=== PATIENT | male | born 1935 | race Caucasian/White ===

== ENCOUNTER 2021-12-03 16:02 | Inpatient (IN) | payer MEDICARE, BC ==
[2021-12-04] MEDS ORDERED: traZODone HCl 50 MG TAB PO SCH (22:15)
[2021-12-04] MEDS ORDERED: Melatonin 3 MG TAB PO SCH (22:15)
[2021-12-05] MEDS ORDERED: Ventolin HFA Inhaler 60 PUFF INHALER INH PRN (12:50)
[2021-12-05] MEDS ORDERED: Nitroglycerin 0.4 MG TAB (25 Tab Bottle) SL PRN (12:50)
[2021-12-05] MEDS ORDERED: Calcium Carbonate 500 MG ChewTAB PO PRN (12:54)
[2021-12-05] MEDS ORDERED: Cepastat Lozenges 1 LOZ PO PRN (12:54)
[2021-12-05] MEDS ORDERED: Guaifenesin DM 100-10/5 ML UDCUP PO PRN (12:54)
[2021-12-05] MEDS ORDERED: Artificial Tear Sol 15 ML BOT EA EYE PRN (12:54)
[2021-12-05] MEDS ORDERED: Benzonatate 100 MG CAP PO PRN (12:54)
[2021-12-05] MEDS ORDERED: cloNIDine 0.1 MG TAB PO PRN (12:54)
[2021-12-05] MEDS ORDERED: Loperamide HCl 2 MG CAP PO PRN ×2 (12:54)
[2021-12-05] MEDS ORDERED: Acetaminophen 650 MG Suppository PR PRN (12:54)
[2021-12-05] MEDS ORDERED: Ondansetron ODT 4 MG TAB PO PRN (12:54)
[2021-12-05] MEDS: Gabapentin 300 MG CAP PO SCH ×2 (14:27→21:42)
[2021-12-05] MEDS: Acetaminophen 325 MG TAB PO PRN (14:28)
[2021-12-05] MEDS ORDERED: [UNRECOGNIZED DRUG - OTHER] PO SCH (21:00)
[2021-12-05] MEDS ORDERED: ROSUVASTATIN CALCIUM 20 MG PO SCH (21:00)
[2021-12-05] MEDS ORDERED: RISPERIDONE 1 MG PO SCH (21:00)
[2021-12-05] MEDS: Polyethylene Glycol 3350 17 GM Packet PO SCH (21:42)
[2021-12-05] MEDS: Senokot S 8.6-50 MG TAB PO SCH (21:43)
[2021-12-05] MEDS: risperiDONE 0.5 MG TAB PO SCH (21:43)
[2021-12-05] MEDS: Folic Acid 1 MG TAB PO SCH (21:43)
[2021-12-05] MEDS: Cyanocobalamin (Vitamin B-12) 1,000 MCG TAB PO SCH (21:43)
[2021-12-05] MEDS: Rosuvastatin 10 MG TAB PO SCH (21:43)
[2021-12-05] MEDS: Apixaban 5 MG TAB PO SCH (21:43)
[2021-12-06] MEDS: Gabapentin 300 MG CAP PO SCH ×3 (08:45→20:48)
[2021-12-06] MEDS: Cholecalciferol (Vitamin D3) 400 UNITS TAB PO SCH (08:45)
[2021-12-06] MEDS: risperiDONE 0.5 MG TAB PO SCH ×2 (08:46→20:48)
[2021-12-06] MEDS: Potassium Chloride 20 MEQ TAB PO SCH (08:47)
[2021-12-06] MEDS: Apixaban 5 MG TAB PO SCH ×2 (08:47→20:49)
[2021-12-06] MEDS: Spironolactone 25 MG TAB PO SCH (08:47)
[2021-12-06] MEDS: Ascorbic Acid 500 mg Chewable Tablet PO SCH (08:47)
[2021-12-06] MEDS: Senokot S 8.6-50 MG TAB PO SCH ×2 (08:47→20:49)
[2021-12-06] MEDS: Zinc Sulfate 220 MG CAP PO SCH (08:48)
[2021-12-06] MEDS: Aspirin 81 mg Enteric Coated Tablet PO SCH (08:48)
[2021-12-06] MEDS ORDERED: Cholecalciferol (Vitamin D3) 400 UNITS TAB PO SCH (09:00)
[2021-12-06 09:09] LABS: #Basophils 0.1 thou/uL (0.0-0.2); #Eosinphils 0.2 thou/uL (0.0-0.7); #Lymphocytes 0.8 thou/uL (1.20-3.40); #Monocytes 0.5 thou/uL (0.11-0.59); #Neutrophils 5.5 thou/uL (1.40-6.50); %Eosinophils 2.5 % (0.0-10.0); %Lymphocytes 11.3 % (21.0-51.0); %Monocytes 7.2 % (0.0-10.0); Hemoglobin 15.6 g/dL (14.0-18.0); Mean Corpuscular HGB CONC 30.1 g/dL (32.0-36.0); Mean Corpuscular Hemoglobin 29.1 pg (27.0-31.0); Mean Corpuscular Volume 96.4 fL (78.0-98.0); Mean Platelet Volume 10.5 fL (7.4-10.4); Platelet Count 121 thou/uL (130-400); Red Blood Cell (RBC) Count 5.38 mill/uL (4.70-6.10)
[2021-12-06] MEDS: Furosemide 40 MG TAB PO SCH (09:29)
[2021-12-06 09:45] LABS: ALT (SGPT) 23 U/L (8-55); AST (SGOT) 37 U/L (5-34); Albumin 3.8 g/dL (3.4-4.8); Alkaline Phosphatase 166 U/L (40-110); Anion Gap 19 mmol/L (10-20); BUN (Urea Nitrogen) 20 mg/dL (8.4-25.7); Calc. Creatinine Clearance 84 mL/min (70-130); Calcium 9.7 mg/dL (7.8-10.44); Carbon Dioxide 28 mmol/L (23-31); Chloride 97 mmol/L (98-107); Estimated GFR 88; Globulin 3.1 g/dL (2.4-3.5); Glucose 140 mg/dL (83-110); Potassium 3.9 mmol/L (3.5-5.1); Protein, Total 6.9 g/dL (5.8-8.1); Sodium 140 mmol/L (136-145)
[2021-12-06] MEDS: Acetaminophen 325 MG TAB PO PRN (15:43)
[2021-12-06] MEDS: Polyethylene Glycol 3350 17 GM Packet PO SCH (20:48)
[2021-12-06] MEDS: Rosuvastatin 10 MG TAB PO SCH (20:48)
[2021-12-06] MEDS: Cyanocobalamin (Vitamin B-12) 1,000 MCG TAB PO SCH (20:49)
[2021-12-06] MEDS: Folic Acid 1 MG TAB PO SCH (20:49)
[2021-12-07] MEDS: Spironolactone 25 MG TAB PO SCH (08:48)
[2021-12-07] MEDS: Zinc Sulfate 220 MG CAP PO SCH (08:48)
[2021-12-07] MEDS: Ascorbic Acid 500 mg Chewable Tablet PO SCH (08:48)
[2021-12-07] MEDS: Apixaban 5 MG TAB PO SCH ×2 (08:48→20:35)
[2021-12-07] MEDS: Aspirin 81 mg Enteric Coated Tablet PO SCH (08:48)
[2021-12-07] MEDS: risperiDONE 0.5 MG TAB PO SCH ×2 (08:48→20:35)
[2021-12-07] MEDS: Potassium Chloride 20 MEQ TAB PO SCH (08:49)
[2021-12-07] MEDS: Cholecalciferol (Vitamin D3) 400 UNITS TAB PO SCH (08:49)
[2021-12-07] MEDS: Gabapentin 300 MG CAP PO SCH ×3 (08:49→20:35)
[2021-12-07] MEDS: Furosemide 40 MG TAB PO SCH (08:51)
[2021-12-07] MEDS: Senokot S 8.6-50 MG TAB PO SCH ×2 (09:30→20:35)
[2021-12-07] MEDS: Acetaminophen 325 MG TAB PO PRN (14:40)
[2021-12-07] MEDS: Rosuvastatin 10 MG TAB PO SCH (20:34)
[2021-12-07] MEDS: Folic Acid 1 MG TAB PO SCH (20:35)
[2021-12-07] MEDS: Cyanocobalamin (Vitamin B-12) 1,000 MCG TAB PO SCH (20:35)
[2021-12-07] MEDS: Ondansetron ODT 4 MG TAB SL PRN (20:35)
[2021-12-07] MEDS: Polyethylene Glycol 3350 17 GM Packet PO SCH (20:36)
[2021-12-08] MEDS: Acetaminophen 325 MG TAB PO PRN (09:50)
[2021-12-08] MEDS: Gabapentin 300 MG CAP PO SCH ×3 (09:51→20:18)
[2021-12-08 09:52] LABS: #Basophils 0.1 thou/uL (0.0-0.2); #Eosinphils 0.4 thou/uL (0.0-0.7); #Monocytes 0.7 thou/uL (0.11-0.59); %Basophils 1.1 % (0.0-1.0); %Eosinophils 4.1 % (0.0-10.0); %Lymphocytes 10.5 % (21.0-51.0); %Monocytes 7.8 % (0.0-10.0); %Neutrophils 76.5 % (42.0-75.0); Hemoglobin 15.1 g/dL (14.0-18.0); Mean Corpuscular HGB CONC 29.5 g/dL (32.0-36.0); Mean Corpuscular Hemoglobin 28.8 pg (27.0-31.0); Mean Corpuscular Volume 97.7 fL (78.0-98.0); Mean Platelet Volume 10.8 fL (7.4-10.4); Platelet Count 205 thou/uL (130-400); Red Blood Cell (RBC) Count 5.23 mill/uL (4.70-6.10); White Blood Cell (WBC) Count 9.2 thou/uL (4.8-10.8)
[2021-12-08] MEDS: Senokot S 8.6-50 MG TAB PO SCH ×2 (09:52→20:18)
[2021-12-08] MEDS: Aspirin 81 mg Enteric Coated Tablet PO SCH (09:57)
[2021-12-08] MEDS: Potassium Chloride 20 MEQ TAB PO SCH (09:57)
[2021-12-08] MEDS: Spironolactone 25 MG TAB PO SCH (09:58)
[2021-12-08] MEDS: risperiDONE 0.5 MG TAB PO SCH ×2 (10:00→20:19)
[2021-12-08] MEDS: Apixaban 5 MG TAB PO SCH ×2 (10:00→20:19)
[2021-12-08] MEDS: Ascorbic Acid 500 mg Chewable Tablet PO SCH (10:01)
[2021-12-08] MEDS: Cholecalciferol (Vitamin D3) 400 UNITS TAB PO SCH (10:01)
[2021-12-08 10:02] LABS: Anion Gap 18 mmol/L (10-20); BUN (Urea Nitrogen) 20 mg/dL (8.4-25.7); Calc. Creatinine Clearance 79 mL/min (70-130); Calcium 9.4 mg/dL (7.8-10.44); Carbon Dioxide 25 mmol/L (23-31); Chloride 101 mmol/L (98-107); Estimated GFR 87; Glucose 164 mg/dL (83-110); Potassium 4.9 mmol/L (3.5-5.1); Sodium 139 mmol/L (136-145)
[2021-12-08] MEDS: Furosemide 40 MG TAB PO SCH (10:03)
[2021-12-08] MEDS: Zinc Sulfate 220 MG CAP PO SCH (10:04)
[2021-12-08] MEDS: Polyethylene Glycol 3350 17 GM Packet PO SCH (20:18)
[2021-12-08] MEDS: Rosuvastatin 10 MG TAB PO SCH (20:19)
[2021-12-08] MEDS: Folic Acid 1 MG TAB PO SCH (20:19)
[2021-12-08] MEDS: Cyanocobalamin (Vitamin B-12) 1,000 MCG TAB PO SCH (20:19)
[2021-12-09] MEDS: Gabapentin 300 MG CAP PO SCH ×3 (08:42→21:29)
[2021-12-09] MEDS: Zinc Sulfate 220 MG CAP PO SCH (08:42)
[2021-12-09] MEDS: Senokot S 8.6-50 MG TAB PO SCH ×2 (08:42→21:29)
[2021-12-09] MEDS: risperiDONE 0.5 MG TAB PO SCH ×2 (08:43→21:31)
[2021-12-09] MEDS: Apixaban 5 MG TAB PO SCH ×2 (08:43→21:31)
[2021-12-09] MEDS: Cholecalciferol (Vitamin D3) 400 UNITS TAB PO SCH (08:43)
[2021-12-09] MEDS: Aspirin 81 mg Enteric Coated Tablet PO SCH (08:43)
[2021-12-09] MEDS: Potassium Chloride 20 MEQ TAB PO SCH (08:43)
[2021-12-09] MEDS: Spironolactone 25 MG TAB PO SCH (08:43)
[2021-12-09] MEDS: Ascorbic Acid 500 mg Chewable Tablet PO SCH (08:43)
[2021-12-09] MEDS: Furosemide 20 MG TAB PO SCH (08:43)
[2021-12-09] MEDS: Acetaminophen 325 MG TAB PO PRN (12:50)
[2021-12-09] MEDS: Rosuvastatin 10 MG TAB PO SCH (21:28)
[2021-12-09] MEDS: Polyethylene Glycol 3350 17 GM Packet PO SCH (21:28)
[2021-12-09] MEDS: Cyanocobalamin (Vitamin B-12) 1,000 MCG TAB PO SCH (21:29)
[2021-12-09] MEDS: Folic Acid 1 MG TAB PO SCH (21:31)
[2021-12-10] MEDS: Senokot S 8.6-50 MG TAB PO SCH ×2 (09:07→21:20)
[2021-12-10] MEDS: Zinc Sulfate 220 MG CAP PO SCH (09:08)
[2021-12-10] MEDS: Aspirin 81 mg Enteric Coated Tablet PO SCH (09:08)
[2021-12-10] MEDS: Gabapentin 300 MG CAP PO SCH ×3 (09:08→21:23)
[2021-12-10] MEDS: Apixaban 5 MG TAB PO SCH ×2 (09:09→21:21)
[2021-12-10] MEDS: Spironolactone 25 MG TAB PO SCH ×2 (09:09→11:34)
[2021-12-10] MEDS: Furosemide 20 MG TAB PO SCH (09:09)
[2021-12-10] MEDS: Cholecalciferol (Vitamin D3) 400 UNITS TAB PO SCH (09:11)
[2021-12-10] MEDS: risperiDONE 0.5 MG TAB PO SCH ×2 (09:11→21:22)
[2021-12-10] MEDS: Ascorbic Acid 500 mg Chewable Tablet PO SCH (09:11)
[2021-12-10] MEDS: Potassium Chloride 20 MEQ TAB PO SCH (09:11)
[2021-12-10] MEDS: Polyethylene Glycol 3350 17 GM Packet PO SCH (21:17)
[2021-12-10] MEDS: Cyanocobalamin (Vitamin B-12) 1,000 MCG TAB PO SCH (21:21)
[2021-12-10] MEDS: Folic Acid 1 MG TAB PO SCH (21:22)
[2021-12-10] MEDS: Rosuvastatin 10 MG TAB PO SCH (21:22)
[2021-12-11 06:15] LABS: #Basophils 0.1 thou/uL (0.0-0.2); #Eosinphils 0.3 thou/uL (0.0-0.7); #Lymphocytes 1.4 thou/uL (1.20-3.40); #Monocytes 0.8 thou/uL (0.11-0.59); #Neutrophils 6.9 thou/uL (1.40-6.50); %Basophils 0.7 % (0.0-1.0); %Eosinophils 3.6 % (0.0-10.0); %Lymphocytes 14.5 % (21.0-51.0); %Monocytes 8.1 % (0.0-10.0); %Neutrophils 73.1 % (42.0-75.0); Hemoglobin 13.9 g/dL (14.0-18.0); Mean Corpuscular HGB CONC 30.1 g/dL (32.0-36.0); Mean Corpuscular Hemoglobin 29.1 pg (27.0-31.0); Mean Corpuscular Volume 96.8 fL (78.0-98.0); Platelet Count 223 thou/uL (130-400); RBC Distribution Width 13.9 % (11.5-14.5); Red Blood Cell (RBC) Count 4.79 mill/uL (4.70-6.10); White Blood Cell (WBC) Count 9.4 thou/uL (4.8-10.8)
[2021-12-11 06:39] LABS: Anion Gap 18 mmol/L (10-20); BUN (Urea Nitrogen) 19 mg/dL (8.4-25.7); Calc. Creatinine Clearance 83 mL/min (70-130); Calcium 9.2 mg/dL (7.8-10.44); Carbon Dioxide 24 mmol/L (23-31); Chloride 102 mmol/L (98-107); Estimated GFR 88; Glucose 118 mg/dL (83-110); Potassium 4.4 mmol/L (3.5-5.1); Sodium 140 mmol/L (136-145)
[2021-12-11] MEDS: Apixaban 5 MG TAB PO SCH ×2 (08:30→21:04)
[2021-12-11] MEDS: Cholecalciferol (Vitamin D3) 400 UNITS TAB PO SCH (08:30)
[2021-12-11] MEDS: Potassium Chloride 20 MEQ TAB PO SCH (08:30)
[2021-12-11] MEDS: Ascorbic Acid 500 mg Chewable Tablet PO SCH (08:30)
[2021-12-11] MEDS: Zinc Sulfate 220 MG CAP PO SCH (08:30)
[2021-12-11] MEDS: Gabapentin 300 MG CAP PO SCH ×3 (08:31→21:03)
[2021-12-11] MEDS: Aspirin 81 mg Enteric Coated Tablet PO SCH (08:32)
[2021-12-11] MEDS: risperiDONE 0.5 MG TAB PO SCH ×2 (08:32→21:01)
[2021-12-11] MEDS: Furosemide 20 MG TAB PO SCH (08:32)
[2021-12-11] MEDS: Spironolactone 25 MG TAB PO SCH (08:34)
[2021-12-11] MEDS: Senokot S 8.6-50 MG TAB PO SCH ×2 (09:28→21:35)
[2021-12-11] MEDS: Acetaminophen 325 MG TAB PO PRN (18:44)
[2021-12-11] MEDS: Rosuvastatin 10 MG TAB PO SCH (21:03)
[2021-12-11] MEDS: Folic Acid 1 MG TAB PO SCH (21:04)
[2021-12-11] MEDS: Polyethylene Glycol 3350 17 GM Packet PO SCH (21:04)
[2021-12-11] MEDS: Cyanocobalamin (Vitamin B-12) 1,000 MCG TAB PO SCH (21:04)
[2021-12-12] MEDS: Gabapentin 300 MG CAP PO SCH ×3 (08:24→21:16)
[2021-12-12] MEDS: Ascorbic Acid 500 mg Chewable Tablet PO SCH (08:25)
[2021-12-12] MEDS: Zinc Sulfate 220 MG CAP PO SCH (08:25)
[2021-12-12] MEDS: Cholecalciferol (Vitamin D3) 400 UNITS TAB PO SCH (08:25)
[2021-12-12] MEDS: Potassium Chloride 20 MEQ TAB PO SCH (08:25)
[2021-12-12] MEDS: Aspirin 81 mg Enteric Coated Tablet PO SCH (08:26)
[2021-12-12] MEDS: risperiDONE 0.5 MG TAB PO SCH ×2 (08:27→21:17)
[2021-12-12] MEDS: Acetaminophen 325 MG TAB PO PRN ×2 (08:28→17:40)
[2021-12-12] MEDS: Apixaban 5 MG TAB PO SCH ×2 (08:28→21:17)
[2021-12-12] MEDS: Spironolactone 25 MG TAB PO SCH (09:32)
[2021-12-12] MEDS: Furosemide 20 MG TAB PO SCH (09:48)
[2021-12-12] MEDS: Senokot S 8.6-50 MG TAB PO SCH ×2 (09:49→21:19)
[2021-12-12] MEDS: Folic Acid 1 MG TAB PO SCH (21:17)
[2021-12-12] MEDS: Rosuvastatin 10 MG TAB PO SCH (21:17)
[2021-12-12] MEDS: Cyanocobalamin (Vitamin B-12) 1,000 MCG TAB PO SCH (21:18)
[2021-12-12] MEDS: Polyethylene Glycol 3350 17 GM Packet PO SCH (21:19)
[2021-12-13] MEDS: Potassium Chloride 20 MEQ TAB PO SCH ×2 (07:57→08:15)
[2021-12-13] MEDS: Cholecalciferol (Vitamin D3) 400 UNITS TAB PO SCH ×2 (07:57→08:17)
[2021-12-13] MEDS: Aspirin 81 mg Enteric Coated Tablet PO SCH ×2 (07:57→08:16)
[2021-12-13] MEDS: Furosemide 20 MG TAB PO SCH ×2 (07:58→08:16)
[2021-12-13] MEDS: Apixaban 5 MG TAB PO SCH ×3 (07:58→20:42)
[2021-12-13] MEDS: risperiDONE 0.5 MG TAB PO SCH ×2 (07:58→20:43)
[2021-12-13] MEDS: Gabapentin 300 MG CAP PO SCH ×3 (07:58→20:42)
[2021-12-13] MEDS: Zinc Sulfate 220 MG CAP PO SCH (07:58)
[2021-12-13] MEDS: Ascorbic Acid 500 mg Chewable Tablet PO SCH (07:58)
[2021-12-13] MEDS: Senokot S 8.6-50 MG TAB PO SCH ×2 (08:17→20:43)
[2021-12-13] MEDS: Ondansetron ODT 4 MG TAB SL PRN (14:33)
[2021-12-13] MEDS: Metoclopramide HCl 10 MG TAB PO SCH ×2 (17:53→20:42)
[2021-12-13] MEDS: Polyethylene Glycol 3350 17 GM Packet PO SCH (20:42)
[2021-12-13] MEDS: Folic Acid 1 MG TAB PO SCH (20:42)
[2021-12-13] MEDS: Cyanocobalamin (Vitamin B-12) 1,000 MCG TAB PO SCH (20:42)
[2021-12-13] MEDS: Rosuvastatin 10 MG TAB PO SCH (20:43)
[2021-12-14 06:04] LABS: Anion Gap 16 mmol/L (10-20); BUN (Urea Nitrogen) 16 mg/dL (8.4-25.7); Calc. Creatinine Clearance 82 mL/min (70-130); Calcium 9.3 mg/dL (7.8-10.44); Carbon Dioxide 26 mmol/L (23-31); Chloride 104 mmol/L (98-107); Estimated GFR 89; Glucose 117 mg/dL (83-110); Potassium 4.4 mmol/L (3.5-5.1); Sodium 142 mmol/L (136-145)
[2021-12-14 06:17] LABS: #Basophils 0.2 thou/uL (0.0-0.2); #Eosinphils 0.2 thou/uL (0.0-0.7); #Lymphocytes 1.2 thou/uL (1.20-3.40); #Monocytes 0.6 thou/uL (0.11-0.59); #Neutrophils 8.1 thou/uL (1.40-6.50); %Basophils 1.6 % (0.0-1.0); %Lymphocytes 11.8 % (21.0-51.0); %Monocytes 6.2 % (0.0-10.0); %Neutrophils 78.4 % (42.0-75.0); Hemoglobin 13.8 g/dL (14.0-18.0); Mean Corpuscular HGB CONC 29.9 g/dL (32.0-36.0); Mean Corpuscular Hemoglobin 28.8 pg (27.0-31.0); Mean Corpuscular Volume 96.5 fL (78.0-98.0); Mean Platelet Volume 9.8 fL (7.4-10.4); Platelet Count 243 thou/uL (130-400); Red Blood Cell (RBC) Count 4.79 mill/uL (4.70-6.10); White Blood Cell (WBC) Count 10.3 thou/uL (4.8-10.8)
[2021-12-14] MEDS: Furosemide 20 MG TAB PO SCH (07:43)
[2021-12-14] MEDS: Metoclopramide HCl 10 MG TAB PO SCH ×4 (07:43→21:46)
[2021-12-14] MEDS: Aspirin 81 mg Enteric Coated Tablet PO SCH (07:44)
[2021-12-14] MEDS: risperiDONE 0.5 MG TAB PO SCH ×2 (07:44→21:46)
[2021-12-14] MEDS: Gabapentin 300 MG CAP PO SCH ×3 (07:44→21:47)
[2021-12-14] MEDS: Senokot S 8.6-50 MG TAB PO SCH ×2 (07:45→21:48)
[2021-12-14] MEDS: Potassium Chloride 20 MEQ TAB PO SCH (09:37)
[2021-12-14] MEDS: Ascorbic Acid 500 mg Chewable Tablet PO SCH (09:38)
[2021-12-14] MEDS: Apixaban 5 MG TAB PO SCH ×2 (09:38→21:45)
[2021-12-14] MEDS: Cholecalciferol (Vitamin D3) 400 UNITS TAB PO SCH (09:38)
[2021-12-14] MEDS: Zinc Sulfate 220 MG CAP PO SCH (09:39)
[2021-12-14] MEDS: Cyanocobalamin (Vitamin B-12) 1,000 MCG TAB PO SCH (21:46)
[2021-12-14] MEDS: Rosuvastatin 10 MG TAB PO SCH (21:46)
[2021-12-14] MEDS: Folic Acid 1 MG TAB PO SCH (21:46)
[2021-12-14] MEDS: Polyethylene Glycol 3350 17 GM Packet PO SCH (21:58)
[2021-12-15] MEDS: Acetaminophen 325 MG TAB PO PRN ×3 (03:00→18:45)
[2021-12-15] MEDS: Ondansetron ODT 4 MG TAB SL PRN (08:04)
[2021-12-15] MEDS: Gabapentin 300 MG CAP PO SCH ×3 (09:08→21:47)
[2021-12-15] MEDS: Cholecalciferol (Vitamin D3) 400 UNITS TAB PO SCH (09:08)
[2021-12-15] MEDS: Ascorbic Acid 500 mg Chewable Tablet PO SCH (09:09)
[2021-12-15] MEDS: Aspirin 81 mg Enteric Coated Tablet PO SCH (09:09)
[2021-12-15] MEDS: Potassium Chloride 20 MEQ TAB PO SCH ×2 (09:10→09:33)
[2021-12-15] MEDS: risperiDONE 0.5 MG TAB PO SCH ×2 (09:10→21:40)
[2021-12-15] MEDS: Apixaban 5 MG TAB PO SCH ×2 (09:13→21:39)
[2021-12-15] MEDS: Zinc Sulfate 220 MG CAP PO SCH (09:13)
[2021-12-15] MEDS: Metoclopramide HCl 10 MG TAB PO SCH ×4 (09:14→21:47)
[2021-12-15] MEDS: Senokot S 8.6-50 MG TAB PO SCH ×2 (09:14→21:39)
[2021-12-15] MEDS: Furosemide 20 MG TAB PO SCH (09:14)
[2021-12-15] MEDS: Folic Acid 1 MG TAB PO SCH (21:39)
[2021-12-15] MEDS: Rosuvastatin 10 MG TAB PO SCH (21:39)
[2021-12-15] MEDS: Cyanocobalamin (Vitamin B-12) 1,000 MCG TAB PO SCH (21:41)
[2021-12-15] MEDS: Polyethylene Glycol 3350 17 GM Packet PO SCH (21:48)
[2021-12-16] MEDS: Acetaminophen 325 MG TAB PO PRN ×3 (03:50→17:36)
[2021-12-16] MEDS ORDERED: risperiDONE 0.5 MG TAB ONE (07:48)
[2021-12-16] MEDS: risperiDONE 0.5 MG TAB PO SCH ×2 (08:01→21:05)
[2021-12-16] MEDS: Gabapentin 300 MG CAP PO SCH ×3 (08:04→21:04)
[2021-12-16] MEDS: Apixaban 5 MG TAB PO SCH ×2 (08:07→21:05)
[2021-12-16] MEDS: Furosemide 20 MG TAB PO SCH (08:07)
[2021-12-16] MEDS: Aspirin 81 mg Enteric Coated Tablet PO SCH (08:09)
[2021-12-16] MEDS: Metoclopramide HCl 10 MG TAB PO SCH ×4 (08:10→21:05)
[2021-12-16] MEDS: Zinc Sulfate 220 MG CAP PO SCH (08:12)
[2021-12-16] MEDS: Senokot S 8.6-50 MG TAB PO SCH ×2 (08:14→21:05)
[2021-12-16] MEDS: Ascorbic Acid 500 mg Chewable Tablet PO SCH (08:17)
[2021-12-16] MEDS: Cholecalciferol (Vitamin D3) 400 UNITS TAB PO SCH (08:17)
[2021-12-16] MEDS: Potassium Chloride 20 MEQ TAB PO SCH (08:20)
[2021-12-16] MEDS: Folic Acid 1 MG TAB PO SCH (21:04)
[2021-12-16] MEDS: Rosuvastatin 10 MG TAB PO SCH (21:04)
[2021-12-16] MEDS: Cyanocobalamin (Vitamin B-12) 1,000 MCG TAB PO SCH (21:04)
[2021-12-16] MEDS: Polyethylene Glycol 3350 17 GM Packet PO SCH (21:05)
[2021-12-17] MEDS: Acetaminophen 325 MG TAB PO PRN ×3 (00:45→15:11)
[2021-12-17] MEDS: Potassium Chloride 20 MEQ TAB PO SCH ×2 (09:24→10:06)
[2021-12-17] MEDS: Cholecalciferol (Vitamin D3) 400 UNITS TAB PO SCH ×2 (09:24→10:06)
[2021-12-17] MEDS: Ascorbic Acid 500 mg Chewable Tablet PO SCH ×2 (09:25→10:06)
[2021-12-17] MEDS: risperiDONE 0.5 MG TAB PO SCH ×2 (09:25→21:42)
[2021-12-17] MEDS: Zinc Sulfate 220 MG CAP PO SCH ×2 (09:25→10:07)
[2021-12-17] MEDS: Apixaban 5 MG TAB PO SCH ×2 (09:25→21:43)
[2021-12-17] MEDS: Furosemide 20 MG TAB PO SCH (09:25)
[2021-12-17] MEDS: Senokot S 8.6-50 MG TAB PO SCH ×3 (09:26→21:43)
[2021-12-17] MEDS: Aspirin 81 mg Enteric Coated Tablet PO SCH (09:26)
[2021-12-17] MEDS: Gabapentin 300 MG CAP PO SCH ×3 (09:27→21:43)
[2021-12-17] MEDS: Metoclopramide HCl 10 MG TAB PO SCH ×4 (09:28→21:43)
[2021-12-17] MEDS: Cyanocobalamin (Vitamin B-12) 1,000 MCG TAB PO SCH (21:43)
[2021-12-17] MEDS: Folic Acid 1 MG TAB PO SCH (21:43)
[2021-12-17] MEDS: Rosuvastatin 10 MG TAB PO SCH (21:43)
[2021-12-17] MEDS: Polyethylene Glycol 3350 17 GM Packet PO SCH (21:44)
[2021-12-18] MEDS: Ondansetron ODT 4 MG TAB SL PRN (09:03)
[2021-12-18] MEDS: risperiDONE 0.5 MG TAB PO SCH ×2 (09:05→20:54)
[2021-12-18] MEDS: Metoclopramide HCl 10 MG TAB PO SCH ×4 (09:07→20:55)
[2021-12-18] MEDS: Potassium Chloride 20 MEQ TAB PO SCH (09:15)
[2021-12-18] MEDS: Cholecalciferol (Vitamin D3) 400 UNITS TAB PO SCH (09:15)
[2021-12-18] MEDS: Furosemide 20 MG TAB PO SCH (09:17)
[2021-12-18] MEDS: Ascorbic Acid 500 mg Chewable Tablet PO SCH (09:17)
[2021-12-18] MEDS: Apixaban 5 MG TAB PO SCH ×2 (09:18→20:55)
[2021-12-18] MEDS: Zinc Sulfate 220 MG CAP PO SCH (09:18)
[2021-12-18] MEDS: Aspirin 81 mg Enteric Coated Tablet PO SCH (09:18)
[2021-12-18] MEDS: Senokot S 8.6-50 MG TAB PO SCH ×2 (09:19→20:54)
[2021-12-18] MEDS: Gabapentin 300 MG CAP PO SCH ×3 (09:44→20:54)
[2021-12-18] MEDS: Acetaminophen 325 MG TAB PO PRN (11:37)
[2021-12-18] MEDS: Polyethylene Glycol 3350 17 GM Packet PO SCH (20:48)
[2021-12-18] MEDS: Cyanocobalamin (Vitamin B-12) 1,000 MCG TAB PO SCH (20:54)
[2021-12-18] MEDS: Rosuvastatin 10 MG TAB PO SCH (20:54)
[2021-12-18] MEDS: Folic Acid 1 MG TAB PO SCH (20:55)
[2021-12-19] MEDS: Acetaminophen 325 MG TAB PO PRN ×3 (08:25→20:26)
[2021-12-19] MEDS: Ondansetron ODT 4 MG TAB SL PRN (08:25)
[2021-12-19] MEDS: Ascorbic Acid 500 mg Chewable Tablet PO SCH (08:26)
[2021-12-19] MEDS: Senokot S 8.6-50 MG TAB PO SCH ×2 (08:26→20:27)
[2021-12-19] MEDS: Aspirin 81 mg Enteric Coated Tablet PO SCH (08:26)
[2021-12-19] MEDS: Apixaban 5 MG TAB PO SCH ×2 (08:27→20:28)
[2021-12-19] MEDS: Zinc Sulfate 220 MG CAP PO SCH (08:27)
[2021-12-19] MEDS: Cholecalciferol (Vitamin D3) 400 UNITS TAB PO SCH (08:27)
[2021-12-19] MEDS: Gabapentin 300 MG CAP PO SCH ×3 (08:27→20:27)
[2021-12-19] MEDS: Potassium Chloride 20 MEQ TAB PO SCH (08:27)
[2021-12-19] MEDS: Metoclopramide HCl 10 MG TAB PO SCH ×4 (08:27→20:28)
[2021-12-19] MEDS: Furosemide 20 MG TAB PO SCH (08:28)
[2021-12-19] MEDS: risperiDONE 0.5 MG TAB PO SCH ×2 (08:29→20:27)
[2021-12-19] MEDS: Sodium Chloride 0.65% Nasal 44 ML BOT EA NARE PRN (17:19)
[2021-12-19] MEDS: Polyethylene Glycol 3350 17 GM Packet PO SCH (20:26)
[2021-12-19] MEDS: Folic Acid 1 MG TAB PO SCH (20:27)
[2021-12-19] MEDS: Cyanocobalamin (Vitamin B-12) 1,000 MCG TAB PO SCH (20:28)
[2021-12-19] MEDS: Rosuvastatin 10 MG TAB PO SCH (20:28)
[2021-12-19 21:26] LABS: Troponin I 0.469 ng/mL (< 0.028)
[2021-12-20] MEDS: Acetaminophen 325 MG TAB PO PRN ×3 (02:36→14:44)
[2021-12-20 04:49] LABS: Troponin I 0.532 ng/mL (< 0.028)
[2021-12-20] MEDS: Gabapentin 300 MG CAP PO SCH ×3 (08:50→20:15)
[2021-12-20] MEDS: Metoclopramide HCl 10 MG TAB PO SCH ×4 (08:50→20:15)
[2021-12-20] MEDS: Ascorbic Acid 500 mg Chewable Tablet PO SCH (08:50)
[2021-12-20] MEDS: Apixaban 5 MG TAB PO SCH ×2 (08:50→20:15)
[2021-12-20] MEDS: Senokot S 8.6-50 MG TAB PO SCH ×2 (08:51→20:15)
[2021-12-20] MEDS: Loratadine 10 MG TAB PO SCH (08:51)
[2021-12-20] MEDS: Cholecalciferol (Vitamin D3) 400 UNITS TAB PO SCH (08:51)
[2021-12-20] MEDS: Furosemide 20 MG TAB PO SCH (08:51)
[2021-12-20] MEDS: Aspirin 81 mg Enteric Coated Tablet PO SCH (08:52)
[2021-12-20] MEDS: Potassium Chloride 20 MEQ TAB PO SCH (08:52)
[2021-12-20] MEDS: Zinc Sulfate 220 MG CAP PO SCH (08:52)
[2021-12-20] MEDS: risperiDONE 0.5 MG TAB PO SCH ×2 (08:53→20:15)
[2021-12-20 19:11] VITALS: BMI 24.5
[2021-12-20] MEDS: Cyanocobalamin (Vitamin B-12) 1,000 MCG TAB PO SCH (20:15)
[2021-12-20] MEDS: Polyethylene Glycol 3350 17 GM Packet PO SCH (20:15)
[2021-12-20] MEDS: Rosuvastatin 10 MG TAB PO SCH (20:16)
[2021-12-20] MEDS: Folic Acid 1 MG TAB PO SCH (20:16)
[2021-12-21] MEDS: Acetaminophen 325 MG TAB PO PRN ×2 (06:21→11:45)
[2021-12-21] MEDS: Zinc Sulfate 220 MG CAP PO SCH (07:51)
[2021-12-21] MEDS: Aspirin 81 mg Enteric Coated Tablet PO SCH (07:51)
[2021-12-21] MEDS: Ascorbic Acid 500 mg Chewable Tablet PO SCH (07:51)
[2021-12-21] MEDS: Potassium Chloride 20 MEQ TAB PO SCH (07:51)
[2021-12-21] MEDS: Cholecalciferol (Vitamin D3) 400 UNITS TAB PO SCH (07:51)
[2021-12-21] MEDS: Metoclopramide HCl 10 MG TAB PO SCH ×4 (07:52→20:28)
[2021-12-21] MEDS: Furosemide 20 MG TAB PO SCH (07:52)
[2021-12-21] MEDS: risperiDONE 0.5 MG TAB PO SCH ×2 (07:52→20:28)
[2021-12-21] MEDS: Gabapentin 300 MG CAP PO SCH ×3 (07:52→20:28)
[2021-12-21] MEDS: Senokot S 8.6-50 MG TAB PO SCH ×2 (07:52→20:27)
[2021-12-21] MEDS: Apixaban 5 MG TAB PO SCH ×2 (07:52→20:28)
[2021-12-21] MEDS: Loratadine 10 MG TAB PO SCH (07:53)
[2021-12-21] MEDS: Bisacodyl 10 MG SUPP PR PRN (13:39)
[2021-12-21] MEDS: Polyethylene Glycol 3350 17 GM Packet PO SCH (20:27)
[2021-12-21] MEDS: Folic Acid 1 MG TAB PO SCH (20:28)
[2021-12-21] MEDS: Rosuvastatin 10 MG TAB PO SCH (20:28)
[2021-12-21] MEDS: Cyanocobalamin (Vitamin B-12) 1,000 MCG TAB PO SCH (20:28)
[2021-12-22] MEDS: Metoclopramide HCl 10 MG TAB PO SCH ×4 (07:35→20:16)
[2021-12-22] MEDS: Acetaminophen 325 MG TAB PO PRN ×2 (08:06→20:15)
[2021-12-22] MEDS: Loratadine 10 MG TAB PO SCH (08:08)
[2021-12-22] MEDS: Furosemide 20 MG TAB PO SCH (08:08)
[2021-12-22] MEDS: Potassium Chloride 20 MEQ TAB PO SCH (08:08)
[2021-12-22] MEDS: Gabapentin 300 MG CAP PO SCH ×3 (08:09→20:14)
[2021-12-22] MEDS: Cholecalciferol (Vitamin D3) 400 UNITS TAB PO SCH (08:09)
[2021-12-22] MEDS: risperiDONE 0.5 MG TAB PO SCH ×2 (08:10→20:14)
[2021-12-22] MEDS: Zinc Sulfate 220 MG CAP PO SCH (08:10)
[2021-12-22] MEDS: Aspirin 81 mg Enteric Coated Tablet PO SCH (08:10)
[2021-12-22] MEDS: Ascorbic Acid 500 mg Chewable Tablet PO SCH (08:10)
[2021-12-22] MEDS: Sodium Chloride 0.65% Nasal 44 ML BOT EA NARE PRN (08:11)
[2021-12-22] MEDS: Apixaban 5 MG TAB PO SCH ×2 (08:12→20:16)
[2021-12-22] MEDS: Senokot S 8.6-50 MG TAB PO SCH ×2 (08:13→20:15)
[2021-12-22] MEDS: Cyanocobalamin (Vitamin B-12) 1,000 MCG TAB PO SCH (20:15)
[2021-12-22] MEDS: Rosuvastatin 10 MG TAB PO SCH (20:16)
[2021-12-22] MEDS: Polyethylene Glycol 3350 17 GM Packet PO SCH (20:16)
[2021-12-22] MEDS: Folic Acid 1 MG TAB PO SCH (20:16)
[2021-12-23 06:06] LABS: Platelet Count 146 thou/uL (130-400)
[2021-12-23] MEDS: Metoclopramide HCl 10 MG TAB PO SCH ×4 (07:30→20:48)
[2021-12-23] MEDS: Senokot S 8.6-50 MG TAB PO SCH ×2 (08:45→20:47)
[2021-12-23] MEDS: Gabapentin 300 MG CAP PO SCH ×3 (08:46→20:48)
[2021-12-23] MEDS: risperiDONE 0.5 MG TAB PO SCH ×2 (08:46→20:48)
[2021-12-23] MEDS: Apixaban 5 MG TAB PO SCH ×2 (08:47→20:48)
[2021-12-23] MEDS: Aspirin 81 mg Enteric Coated Tablet PO SCH (08:47)
[2021-12-23] MEDS: Cholecalciferol (Vitamin D3) 400 UNITS TAB PO SCH (08:47)
[2021-12-23] MEDS: Ascorbic Acid 500 mg Chewable Tablet PO SCH (08:47)
[2021-12-23] MEDS: Zinc Sulfate 220 MG CAP PO SCH (08:47)
[2021-12-23] MEDS: Furosemide 20 MG TAB PO SCH (08:48)
[2021-12-23] MEDS: Potassium Chloride 20 MEQ TAB PO SCH (08:48)
[2021-12-23] MEDS: Loratadine 10 MG TAB PO SCH (08:48)
[2021-12-23] MEDS: Sodium Chloride 0.65% Nasal 44 ML BOT EA NARE PRN (08:48)
[2021-12-23] MEDS: Acetaminophen 325 MG TAB PO PRN ×3 (10:51→23:53)
[2021-12-23] MEDS: Polyethylene Glycol 3350 17 GM Packet PO SCH (20:47)
[2021-12-23] MEDS: Folic Acid 1 MG TAB PO SCH (20:48)
[2021-12-23] MEDS: Cyanocobalamin (Vitamin B-12) 1,000 MCG TAB PO SCH (20:48)
[2021-12-23] MEDS: Rosuvastatin 10 MG TAB PO SCH (20:48)
[2021-12-24] MEDS: Sodium Chloride 0.65% Nasal 44 ML BOT EA NARE PRN (02:31)
[2021-12-24] MEDS: risperiDONE 0.5 MG TAB PO SCH ×2 (08:45→22:00)
[2021-12-24] MEDS: Aspirin 81 mg Enteric Coated Tablet PO SCH (08:45)
[2021-12-24] MEDS: Zinc Sulfate 220 MG CAP PO SCH (08:45)
[2021-12-24] MEDS: Gabapentin 300 MG CAP PO SCH ×3 (08:46→22:00)
[2021-12-24] MEDS: Apixaban 5 MG TAB PO SCH ×2 (08:47→22:00)
[2021-12-24] MEDS: Potassium Chloride 20 MEQ TAB PO SCH (08:47)
[2021-12-24] MEDS: Metoclopramide HCl 10 MG TAB PO SCH ×4 (08:47→22:00)
[2021-12-24] MEDS: Senokot S 8.6-50 MG TAB PO SCH ×2 (08:47→22:00)
[2021-12-24] MEDS: Loratadine 10 MG TAB PO SCH (08:47)
[2021-12-24] MEDS: Ascorbic Acid 500 mg Chewable Tablet PO SCH (08:47)
[2021-12-24] MEDS: Cholecalciferol (Vitamin D3) 400 UNITS TAB PO SCH (08:47)
[2021-12-24] MEDS: Furosemide 20 MG TAB PO SCH (08:51)
[2021-12-24 09:02] LABS: #Basophils 0.1 thou/uL (0.0-0.2); #Eosinphils 0.4 thou/uL (0.0-0.7); #Lymphocytes 1.4 thou/uL (1.20-3.40); #Monocytes 0.7 thou/uL (0.11-0.59); #Neutrophils 7.6 thou/uL (1.40-6.50); %Basophils 1.1 % (0.0-1.0); %Lymphocytes 13.8 % (21.0-51.0); %Monocytes 6.6 % (0.0-10.0); %Neutrophils 74.5 % (42.0-75.0); Hemoglobin 14.6 g/dL (14.0-18.0); Mean Corpuscular Volume 96.5 fL (78.0-98.0); Mean Platelet Volume 11.4 fL (7.4-10.4); Platelet Count 157 thou/uL (130-400); RBC Distribution Width 14.4 % (11.5-14.5); Red Blood Cell (RBC) Count 5.03 mill/uL (4.70-6.10); White Blood Cell (WBC) Count 10.2 thou/uL (4.8-10.8)
[2021-12-24 09:33] LABS: Anion Gap 20 mmol/L (10-20); BUN (Urea Nitrogen) 14 mg/dL (8.4-25.7); Calc. Creatinine Clearance 76 mL/min (70-130); Calcium 9.3 mg/dL (7.8-10.44); Carbon Dioxide 25 mmol/L (23-31); Chloride 99 mmol/L (98-107); Estimated GFR 86; Glucose 140 mg/dL (83-110); Potassium 3.9 mmol/L (3.5-5.1); Sodium 140 mmol/L (136-145)
[2021-12-24] MEDS: Rosuvastatin 10 MG TAB PO SCH (22:00)
[2021-12-24] MEDS: Folic Acid 1 MG TAB PO SCH (22:00)
[2021-12-24] MEDS: Polyethylene Glycol 3350 17 GM Packet PO SCH (22:00)
[2021-12-24] MEDS: Cyanocobalamin (Vitamin B-12) 1,000 MCG TAB PO SCH (22:00)
[2021-12-25] MEDS: Acetaminophen 325 MG TAB PO PRN (01:00)
[2021-12-25] MEDS: Metoclopramide HCl 10 MG TAB PO SCH ×5 (08:29→20:58)
[2021-12-25] MEDS: Potassium Chloride 20 MEQ TAB PO SCH (08:29)
[2021-12-25] MEDS: Gabapentin 300 MG CAP PO SCH ×4 (09:36→20:56)
[2021-12-25] MEDS: Senokot S 8.6-50 MG TAB PO SCH ×3 (09:36→21:00)
[2021-12-25] MEDS: Aspirin 81 mg Enteric Coated Tablet PO SCH (09:36)
[2021-12-25] MEDS: Zinc Sulfate 220 MG CAP PO SCH (09:36)
[2021-12-25] MEDS: risperiDONE 0.5 MG TAB PO SCH ×3 (09:38→20:57)
[2021-12-25] MEDS: Ascorbic Acid 500 mg Chewable Tablet PO SCH (09:39)
[2021-12-25] MEDS: Apixaban 5 MG TAB PO SCH ×3 (09:39→20:55)
[2021-12-25] MEDS: Loratadine 10 MG TAB PO SCH (09:40)
[2021-12-25] MEDS: Cholecalciferol (Vitamin D3) 400 UNITS TAB PO SCH (09:40)
[2021-12-25] MEDS: Furosemide 20 MG TAB PO SCH (09:40)
[2021-12-25] MEDS: Bisacodyl 5 MG TAB PO PRN (15:58)
[2021-12-25] MEDS: Cyanocobalamin (Vitamin B-12) 1,000 MCG TAB PO SCH ×2 (20:15→20:55)
[2021-12-25] MEDS: Folic Acid 1 MG TAB PO SCH ×2 (20:16→21:00)
[2021-12-25] MEDS: Polyethylene Glycol 3350 17 GM Packet PO SCH ×2 (20:17→20:52)
[2021-12-25] MEDS: Rosuvastatin 10 MG TAB PO SCH ×3 (20:18→20:57)
[2021-12-26] MEDS: Acetaminophen 325 MG TAB PO PRN (08:40)
[2021-12-26] MEDS: Ascorbic Acid 500 mg Chewable Tablet PO SCH (08:41)
[2021-12-26] MEDS: Potassium Chloride 20 MEQ TAB PO SCH (08:41)
[2021-12-26] MEDS: Loratadine 10 MG TAB PO SCH (08:41)
[2021-12-26] MEDS: Aspirin 81 mg Enteric Coated Tablet PO SCH (08:41)
[2021-12-26] MEDS: Metoclopramide HCl 10 MG TAB PO SCH ×4 (08:42→20:30)
[2021-12-26] MEDS: Gabapentin 300 MG CAP PO SCH ×3 (08:43→20:30)
[2021-12-26] MEDS: Cholecalciferol (Vitamin D3) 400 UNITS TAB PO SCH (08:43)
[2021-12-26] MEDS: Zinc Sulfate 220 MG CAP PO SCH (08:43)
[2021-12-26] MEDS: Furosemide 20 MG TAB PO SCH (08:43)
[2021-12-26] MEDS: risperiDONE 0.5 MG TAB PO SCH ×2 (08:43→20:29)
[2021-12-26] MEDS: Apixaban 5 MG TAB PO SCH ×2 (08:43→20:31)
[2021-12-26] MEDS: Senokot S 8.6-50 MG TAB PO SCH ×2 (08:43→20:29)
[2021-12-26] MEDS ORDERED: Albuterol 200 PUFF (6.7GM INHALER) INH PRN (10:45)
[2021-12-26] MEDS: Bisacodyl 5 MG TAB PO PRN (11:20)
[2021-12-26] MEDS: Bisacodyl 10 MG SUPP PR PRN (14:23)
[2021-12-26] MEDS: Polyethylene Glycol 3350 17 GM Packet PO SCH (20:29)
[2021-12-26] MEDS: Folic Acid 1 MG TAB PO SCH (20:30)
[2021-12-26] MEDS: Cyanocobalamin (Vitamin B-12) 1,000 MCG TAB PO SCH (20:31)
[2021-12-26] MEDS: Rosuvastatin 10 MG TAB PO SCH (21:00)
[2021-12-27] MEDS: Acetaminophen 325 MG TAB PO PRN (03:29)
[2021-12-27 06:01] LABS: #Basophils 0.1 thou/uL (0.0-0.2); #Eosinphils 0.4 thou/uL (0.0-0.7); #Lymphocytes 1.3 thou/uL (1.20-3.40); #Monocytes 0.8 thou/uL (0.11-0.59); #Neutrophils 6.4 thou/uL (1.40-6.50); %Basophils 1.1 % (0.0-1.0); %Eosinophils 4.6 % (0.0-10.0); %Lymphocytes 14.8 % (21.0-51.0); %Neutrophils 70.6 % (42.0-75.0); Hemoglobin 13.1 g/dL (14.0-18.0); Mean Corpuscular HGB CONC 31.2 g/dL (32.0-36.0); Mean Corpuscular Hemoglobin 30.1 pg (27.0-31.0); Mean Corpuscular Volume 96.5 fL (78.0-98.0); Mean Platelet Volume 10.3 fL (7.4-10.4); Platelet Count 134 thou/uL (130-400); RBC Distribution Width 14.7 % (11.5-14.5); Red Blood Cell (RBC) Count 4.36 mill/uL (4.70-6.10); White Blood Cell (WBC) Count 9.1 thou/uL (4.8-10.8)
[2021-12-27 06:11] LABS: Anion Gap 18 mmol/L (10-20); BUN (Urea Nitrogen) 16 mg/dL (8.4-25.7); Calc. Creatinine Clearance 81 mL/min (70-130); Calcium 9.3 mg/dL (7.8-10.44); Carbon Dioxide 26 mmol/L (23-31); Chloride 104 mmol/L (98-107); Estimated GFR 88; Glucose 109 mg/dL (83-110); Potassium 4.1 mmol/L (3.5-5.1); Sodium 144 mmol/L (136-145)
[2021-12-27] MEDS: Ascorbic Acid 500 mg Chewable Tablet PO SCH (09:05)
[2021-12-27] MEDS: Aspirin 81 mg Enteric Coated Tablet PO SCH (09:05)
[2021-12-27] MEDS: risperiDONE 0.5 MG TAB PO SCH ×2 (09:05→21:11)
[2021-12-27] MEDS: Zinc Sulfate 220 MG CAP PO SCH (09:05)
[2021-12-27] MEDS: Gabapentin 300 MG CAP PO SCH ×3 (09:05→21:11)
[2021-12-27] MEDS: Senokot S 8.6-50 MG TAB PO SCH ×2 (09:06→21:12)
[2021-12-27] MEDS: Cholecalciferol (Vitamin D3) 400 UNITS TAB PO SCH (09:06)
[2021-12-27] MEDS: Potassium Chloride 20 MEQ TAB PO SCH (09:07)
[2021-12-27] MEDS: Loratadine 10 MG TAB PO SCH (09:07)
[2021-12-27] MEDS: Metoclopramide HCl 10 MG TAB PO SCH ×4 (09:07→21:12)
[2021-12-27] MEDS: Apixaban 5 MG TAB PO SCH ×2 (09:08→21:12)
[2021-12-27] MEDS: Furosemide 20 MG TAB PO SCH (09:08)
[2021-12-27] MEDS: Rosuvastatin 10 MG TAB PO SCH (21:11)
[2021-12-27] MEDS: Folic Acid 1 MG TAB PO SCH (21:12)
[2021-12-27] MEDS: Polyethylene Glycol 3350 17 GM Packet PO SCH (21:12)
[2021-12-27] MEDS: Cyanocobalamin (Vitamin B-12) 1,000 MCG TAB PO SCH (21:12)
[2021-12-28] MEDS: Acetaminophen 325 MG TAB PO PRN (04:10)
[2021-12-28] MEDS: Metoclopramide HCl 10 MG TAB PO SCH ×4 (07:47→20:55)
[2021-12-28] MEDS: Potassium Chloride 20 MEQ TAB PO SCH (07:47)
[2021-12-28] MEDS: Apixaban 5 MG TAB PO SCH ×2 (08:03→20:56)
[2021-12-28] MEDS: Furosemide 20 MG TAB PO SCH (08:04)
[2021-12-28] MEDS: Aspirin 81 mg Enteric Coated Tablet PO SCH (08:04)
[2021-12-28] MEDS: risperiDONE 0.5 MG TAB PO SCH ×2 (08:04→20:56)
[2021-12-28] MEDS: Loratadine 10 MG TAB PO SCH (08:47)
[2021-12-28] MEDS: Gabapentin 300 MG CAP PO SCH ×3 (08:47→20:55)
[2021-12-28] MEDS: Zinc Sulfate 220 MG CAP PO SCH (08:47)
[2021-12-28] MEDS: Senokot S 8.6-50 MG TAB PO SCH ×2 (08:47→20:56)
[2021-12-28] MEDS: Cholecalciferol (Vitamin D3) 400 UNITS TAB PO SCH (08:47)
[2021-12-28] MEDS: Ascorbic Acid 500 mg Chewable Tablet PO SCH (08:47)
[2021-12-28] MEDS: Rosuvastatin 10 MG TAB PO SCH (20:55)
[2021-12-28] MEDS: Cyanocobalamin (Vitamin B-12) 1,000 MCG TAB PO SCH (20:55)
[2021-12-28] MEDS: Folic Acid 1 MG TAB PO SCH (20:56)
[2021-12-28] MEDS: Polyethylene Glycol 3350 17 GM Packet PO SCH (20:56)
[2021-12-29 07:58] VITALS: TEMP 98.4
[2021-12-29] MEDS: Acetaminophen 325 MG TAB PO PRN (08:05)
[2021-12-29] MEDS: Ascorbic Acid 500 mg Chewable Tablet PO SCH (08:06)
[2021-12-29] MEDS: Gabapentin 300 MG CAP PO SCH ×2 (08:07→15:19)
[2021-12-29] MEDS: risperiDONE 0.5 MG TAB PO SCH (08:07)
[2021-12-29] MEDS: Aspirin 81 mg Enteric Coated Tablet PO SCH (08:07)
[2021-12-29] MEDS: Furosemide 20 MG TAB PO SCH (08:07)
[2021-12-29] MEDS: Metoclopramide HCl 10 MG TAB PO SCH ×2 (08:07→11:19)
[2021-12-29] MEDS: Cholecalciferol (Vitamin D3) 400 UNITS TAB PO SCH (08:08)
[2021-12-29] MEDS: Zinc Sulfate 220 MG CAP PO SCH (08:08)
[2021-12-29] MEDS: Senokot S 8.6-50 MG TAB PO SCH (08:08)
[2021-12-29] MEDS: Apixaban 5 MG TAB PO SCH (08:08)
[2021-12-29] MEDS: Loratadine 10 MG TAB PO SCH (08:08)
[2021-12-29] MEDS: Potassium Chloride 20 MEQ TAB PO SCH (08:08)
[2021-12-29 09:27] VITALS: BP 112/53
[2021-12-29] MEDS: Sodium Chloride 0.65% Nasal 44 ML BOT EA NARE PRN (10:14)
== END 2021-12-29 16:16 | DRG 178 ==
LOC: NAV ACUTE 12-04 15:49
PROVIDERS: ADMIT Family Medicine; ATTEND Family Medicine
PROC: 8E0ZXY6 Isolation (ICD-10-PCS; principal; 2021-12-04)
DX: U07.1 COVID-19 (principal); I48.20 Chronic atrial fibrillation, unspecified; I50.32 Chronic diastolic (congestive) heart failure; I25.10 Atherosclerotic heart disease of native coronary artery without angina pectoris; K21.9 Gastro-esophageal reflux disease without esophagitis; G47.00 Insomnia, unspecified; F03.90 Unspecified dementia, unspecified severity, without behavioral disturbance, psychotic disturbance, mood disturbance, and anxiety; I11.0 Hypertensive heart disease with heart failure; R74.8 Abnormal levels of other serum enzymes; Z79.01 Long term (current) use of anticoagulants; Z79.51 Long term (current) use of inhaled steroids; Z79.82 Long term (current) use of aspirin; Z85.46 Personal history of malignant neoplasm of prostate; Z95.1 Presence of aortocoronary bypass graft; Z88.0 Allergy status to penicillin; Z88.2 Allergy status to sulfonamides; Z88.8 Allergy status to other drugs, medicaments and biological substances; Z79.899 Other long term (current) drug therapy
CPT/HCPCS: 36415; 70360; 71045; 80048; 80053; 83880; 84484; 85014; 85018; 85025; 85049; J7620; Q0162